=== PATIENT | male | born 1975 | race Caucasian/White ===

== ENCOUNTER 2019-08-26 18:41 | Emergency (ER) | payer MEDICAID ==
[~2019-08-26] VITALS: Ht 182.9 cm; Wt 100.0 kg
--- NOTE | 2019-08-26 19:28 | NUR ---
PT REPPORTS DIZZINESS TODAY, N/V X8 DAYS. PT DOWN FROM 2 PINTS ETOH TO 2 OZ, DOWN FROM 20 CIGARETTES A DAY TO 1 EVERY OTHER DAY. PT DENIES PAIN. ANY ACTIVITY CREATES EXTREME DIZZINESS. PT SPEAKS CLEARLY. PLEASANT TO STAFF.
--- NOTE | 2019-08-26 19:29 | NUR ---
TESTOSTERONE DOSE INCREASED FROM 50 MG TO 200 MG 08/17/19
[2019-08-26] MEDS ORDERED: THIAMINE 100MG TABLET PO ONE (19:30)
[2019-08-26] MEDS ORDERED: LORazepam 1MG TABLET PO ONE (19:30)
[2019-08-26 19:49] LABS: BASOPHILS # (AUTO) 0.05 x10^3/uL (0-0.1); BASOPHILS % (AUTO) 1 % (0-1); EOSINOPHILS % (AUTO) 2 % (1-7); LYMPHOCYTES % (AUTO) 37 % (22-44); MD NO; MEAN CORPUSCULAR HEMOGLOBIN 32.9 pg (27.5-34.5); MEAN CORPUSCULAR HGB CONC 33.1 g/dL (33.2-36.2); MEAN CORPUSCULAR VOLUME 99.4 fL (81-97); MEAN PLATELET VOLUME 7.6 fL (7.4-10.4); MONOCYTES # (AUTO) 0.63 x10^3/uL (0.2-0.8); MONOCYTES % (AUTO) 7 % (2-9); NEUTROPHILS % (AUTO) 53 % (42-75); PLATELET COUNT 212 x10^3/uL (130-400); RED BLOOD COUNT 6.06 x10^6/uL (4.38-5.82); RED CELL DISTRIBUTION WIDTH 12.7 % (9.4-14.8)
[2019-08-26] MEDS ORDERED: THIAMINE 100MG TABLET ONE (19:54)
[2019-08-26] MEDS ORDERED: LORazepam 1MG TABLET ONE (19:55)
[2019-08-26 19:58] LABS: ANION GAP 13 mmol/L (5-15); CALCIUM 8.2 mg/dL (8.5-10.1); CHLORIDE 105 mmol/L (98-107); CREATININE 1.49 mg/dL (0.7-1.3)
[2019-08-26] MEDS ORDERED: PLEASE ENTER ALLERGIES MC SCH (20:00)
[2019-08-26] MEDS ORDERED: ACET325T26 PO (20:10)
[2019-08-26] MEDS ORDERED: MECL-101 PO (20:10)
[2019-08-26] MEDS ORDERED: CHLO25TA PO (20:10)
[2019-08-26] MEDS ORDERED: AMOX875T PO (20:10)
[2019-08-26] MEDS ORDERED: PRED10TA14 PO (20:10)
[2019-08-26] MEDS ORDERED: LOSA100T14 PO (20:10)
[2019-08-26] MEDS ORDERED: ATORVASTATIN PO (20:10)
[2019-08-26] MEDS ORDERED: ONDA4TAB13 SL (20:10)
[2019-08-26 20:27] VITALS: BP 138/98
== END 2019-08-26 20:30 | disposition home or self-care (01) ==
LOC: ED 20:01
DX: R42 Dizziness and giddiness (principal); R11.0 Nausea; H66.91 Otitis media, unspecified, right ear; I51.7 Cardiomegaly; F10.10 Alcohol abuse, uncomplicated; F17.210 Nicotine dependence, cigarettes, uncomplicated; Y90.9 Presence of alcohol in blood, level not specified
CPT/HCPCS: 36415; 80048; 85025; 93005; 99284; 99406